=== PATIENT | male | born 1965 | race African-American/Black ===

== ENCOUNTER 2017-02-14 13:13 | Inpatient (IN) | payer OTHER ==
[2017-02-14 13:46] VITALS: BMI 26.6
[2017-02-14] MEDS ORDERED: guaiFENesin/D-METHORPHAN HB 10 ML UNIT-DOSE CUPS PO PRN (13:50)
[2017-02-14] MEDS ORDERED: MAGNESIUM CITRATE 300 ML BOTTLE PO PRN (13:50)
[2017-02-14] MEDS ORDERED: IBUPROFEN 400 MG TABLET (FP) PO PRN (13:50)
[2017-02-14] MEDS ORDERED: P-EPHED 60MG/TRIPROLIDI 2.5MG TABLET PO PRN (13:50)
[2017-02-14] MEDS ORDERED: LOPERAMIDE HCL 2 MG CAPSULE PO PRN (13:50)
[2017-02-14] MEDS ORDERED: MENTHOL/PHENOL 1 EACH UD MM PRN (13:50)
[2017-02-14] MEDS ORDERED: chlordiazePOXIDE HCL 25 MG CAPSULE PO PRN (13:50)
[2017-02-14] MEDS ORDERED: ACETAMINOPHEN 325 MG TABLET (FP) PO PRN (13:50)
[2017-02-14] MEDS ORDERED: MAGNESIUM HYDROX 2400MG/30ML ORAL SUSPENSION 30 ML CUP PO PRN (13:50)
[2017-02-14] MEDS ORDERED: diphenhydrAMINE HCL 50 MG CAPSULE PO PRN (13:50)
--- NOTE | 2017-02-14 14:05 | HP ---
CIWA Score - CIWA Score Nausea/Vomitin Muscle Tremors: 3 Anxiety: 3 Agitation: 3 Paroxysmal Sweats: 3 Orientation: 0-Oriented Tacttile Disturbances: 2-Mild Itch/Numbness/Burn Auditory Disturbances: 0-None Visual Disturbances: 0-None Headache: 0-None Present CIWA-Ar Total Score: 16 Admission ROS BHS - HPI Chief Complaint: i need help to stop drinking Allergies/Adverse Reactions: Allergies Allergy/AdvReac Type Severity Reaction Status Date / Time Penicillins Allergy Verified 02/14/17 13:49 benztropine mesylate AdvReac Verified 02/14/17 13:50 [From brotips] History of Present Illness: 51 y/o m pt with schizophrenia seeking detox. Exam Limitations: No Limitations - Ebola screening Have you traveled outside of the country in the last 21 days: No Have you had contact with anyone from an Ebola affected area: No Have you been sick,other than usual withdrawal symptoms: No Do you have a fever: No - Review of Systems Constitutional: Malaise, Changes in sleep EENT: reports: No Symptoms Reported Respiratory: reports: No Symptoms reported Cardiac: reports: No Symptoms Reported GI: reports: Nausea, Indigestion : reports: Frequency Musculoskeletal: reports: No Symptoms Reported Integumentary: reports: No Symptoms Reported Neuro: reports: Tremors, Other (dystonic reaction 2nd to haldol - pt treated today with benadryl 50mg after he recieved IM haldol today and developed dystonic reaction whie in [facility] .) Endocrine: reports: No Symptoms Reported Hematology: reports: No Symptoms Reported Psychiatric: reports: Orientated x3, Agitated, Anxious, Depressed Other Systems: Reviewed and Negative Patient History - Patient Medical History Hx Anemia: No Hx Asthma: No Hx Chronic Obstructive Pulmonary Disease (COPD): No Hx Cancer: No Hx Cardiac Disorders: No Hx Hypertension: No Hx Hypercholesterolemia: No Hx Pacemaker: No HX Cerebrovascular Accident: No Hx Seizures: No Hx Dementia: No Hx Diabetes: No Hx Gastrointestinal Disorders: No Hx Liver Disease: No Hx Genitourinary Disorders: No Hx Sexually Transmitted Disorders: Yes (Tx for gonnorhea.) Hx Renal Disease (ESRD): No Hx Thyroid Disease: No Hx Human Immunodeficiency Virus (HIV): No Hx Hepatitis C: No Hx Depression: Yes Hx Suicide Attempt: Yes (Tried to overdose in 1997) Hx Schizophrenia: Yes - Patient Surgical History Past Surgical History: Yes Other Surgical History: R mandible sx for fx - PPD History Previous Implant?: Yes Documented Results: Negative w/o proof Implanted On Prior R Admission?: No PPD to be Administered?: Yes - Reproductive History Patient is a Female of Child Bearing Age (11 -55 yrs old): No Patient : No - Smoking Cessation Smoking history: Former smoker Have you smoked in the past 12 months: No If you are a former smoker, when did you quit?: 1989 Hx Chewing Tobacco Use: No Initiated information on smoking cessation: No 'Breaking Loose' booklet given: 02/14/17 - Substance & Tx. History Hx Alcohol Use: Yes Hx Substance Use: No Substance Use Type: Alcohol Hx Substance Use Treatment: Yes - Substances Abused Alcohol Route: Oral Frequency: Daily Amount used: 3 pints vodka Age of first use: 17 Date of Last Use: 02/13/17 Family Disease History - Family Disease History Family Disease History: Diabetes: Grandparent Admission Physical Exam S - Vital Signs Vital Signs: Vital Signs - 24 hr 02/14/17 13:44 Temperature 96.8 F L Pulse Rate 118 H Respiratory 20 Rate Blood Pressure 109/62 51 y/o m pt aox3 , in nad ambulating cooperating with exam. - Physical General Appearance: Yes: Disheveled, Irritable, Anxious HEENTM: Yes: EOMI, Hearing grossly Normal, Normal ENT Inspection, Normal Voice, ARPIT Respiratory: Yes: Within Normal Limits, Chest Non-Tender, Lungs Clear, Normal Breath Sounds, No Respiratory Distress Neck: Yes: Supple, Trachea in good position Breast: Yes: Other (mild gynecomastia ans accesory nipple on rt and left) Cardiology: Yes: Regular Rhythm, Regular Rate, S1, S2 Abdominal: Yes: Non Tender, Flat, Increased Bowel Sounds Genitourinary: Yes: Frequency Back: Yes: Decreased Range of Motion Musculoskeletal: Yes: Back pain Neurological: Yes: manager mental health II-XII NML intact, Fully Oriented, Alert, Motor Strength 5/5, Normal Response Integumentary: Yes: Moist Lymphatic: Yes: Within Normal Limits - Diagnostic (1) Alcohol dependence with uncomplicated withdrawal Current Visit: Yes Status: Acute (2) Schizophrenia Current Visit: Yes Status: Acute Qualifiers: Schizophrenia type: unspecified Qualified Code(s): F20.9 - Schizophrenia, unspecified (3) Acute dystonic reaction due to drugs Current Visit: Yes Status: Acute Comment: pt given Haldol 100mg at [facility] and while in [facility] developed dystonic reaction involving tongue and neck . now pt improved after benadryl 50mg im . Cleared for Admission [facility] - Detox or Rehab [facility] Level of Care: Medically Managed Detox Regimen/Protocol: Librium S Breath Alcohol Content Breath Alcohol Content: 0
[2017-02-14] MEDS: chlordiazePOXIDE HCL 25 MG CAPSULE PO SCH ×2 (17:53→23:38)
[2017-02-14] MEDS ORDERED: EPINEPHrine 1:1,000 0.3 MG/0.3 ML SYR IM ONE (20:53)
--- NOTE | 2017-02-14 20:53 | PN ---
[facility] Progress Note Note: received nurse informed, patient has swelling tongue, unable to talk clearly observed patient sitting on chair in front of nurse station, alert, protrusion + swelling tongue, unable to swallow saliva epi pen x 1 given successfully, ambulance was call, information provided to er.
[2017-02-14 23:07] LABS: URINE APPEARANCE CLEAR; URINE BILIRUBIN NEGATIVE (NEGATIVE); URINE BLOOD NEGATIVE (NEGATIVE); URINE COLOR LTYELLOW; URINE GLUCOSE (UA) NEGATIVE (NEGATIVE); URINE KETONE NEGATIVE (NEGATIVE); URINE LEUK ESTERASE NEGATIVE (NEGATIVE); URINE NITRITE NEGATIVE (NEGATIVE); URINE PROTEIN NEGATIVE (NEGATIVE); URINE UROBILINOGEN NEGATIVE E.U./dl (0.2-1.0)
[2017-02-14] MEDS: THIAMINE HCL 100 MG TABLET (FP) PO SCH (23:26)
[2017-02-15] MEDS ORDERED: diphenhydrAMINE HCL 25 MG CAPSULE (FP) PO PRN (00:44)
[2017-02-15] MEDS: chlordiazePOXIDE HCL 25 MG CAPSULE PO SCH ×4 (05:33→23:23)
--- NOTE | 2017-02-15 08:53 | CONSULT ---
[facility] Psychiatric Consult - Data Date of interview: 02/15/17 Admission source: [facility] Identifying data: Yuridia is 51 years old male with Schizophrenia, psychiatric hospitalization history, history of chronic Tardive Diskinesia, intoxicated with : Alcohol Substance Abuse History: - Smoking Cessation. Smoking history: Former smoker. Have you smoked in the past 12 months: No. If you are a former smoker, when did you quit?: 1989. Hx Chewing Tobacco Use: No. Initiated information on smoking cessation: No. 'Breaking Loose' booklet given: 02/14/17. - Substance & Tx. History. Hx Alcohol Use: Yes. Hx Substance Use: No. Substance Use Type : Alcohol. Hx Substance Use Treatment: Yes. - Substances Abused. Alcohol. Route: Oral. Frequency: Daily. Amount used: 3 pints vodka. Age of first use : 17. Date of Last Use: 02/13/17 Medical History: PPD+ history, Dystonia, TD Psychiatric History: Patient reports history of Paranoid Schizoiphrenia with most recent psychiatric hospitalization on about 5 years ago, reports stable on monthly Haldol Decanoate injections with most recenmt one on 02/14/17. Patient reprots allergy to Benzthropin and Cogentin, reports chronic history of TD, reports taking Benadryl IM 100mg injections four times per day Physical/Sexual Abuse/Trauma History: Denies, unclear Additional Comment: Benadryl IM 100mg po bid Mental Status Exam - Mental Status Exam Alert and Oriented to: Person Cognitive Function: Fair Patient Appearance: Unkempt Mood: Anxious, Irritable Affect: Constricted Patient Behavior: Impulsive, Talkative Speech Pattern: Excessive Voice Loudness: Mildly Loud Thought Process: Goal Oriented Thought Disorder: Being Controlled Hallucinations: Denies Suicidal Ideation: Denies Homicidal Ideation: Denies Insight/Judgement: Fair Sleep: Difficulty falling asleep Appetite: Weight loss Muscle strength/Tone: Rigidity Gait/Station: Shuffling Additional Comments: Benadryl IM 100mg po bid Psychiatric Findings - Problem List ([place] 1, 2,3) (1) Acute dystonic reaction due to drugs Current Visit: Yes Status: Acute Comment: pt given Haldol 100mg at [facility] and while in [facility] developed dystonic reaction involving tongue and neck . now pt improved after benadryl 50mg im . (2) Schizophrenia Current Visit: Yes Status: Acute Qualifiers: Schizophrenia type: unspecified Qualified Code(s): F20.9 - Schizophrenia, unspecified (3) Alcohol dependence with uncomplicated withdrawal Current Visit: No Status: Acute (4) Tardive dyskinesia Current Visit: No Status: Acute - Initial Treatment Plan Initial Treatment Plan: Benadryl IM 100mg po bid
--- NOTE | 2017-02-15 09:50 | PN ---
S CIWA - CIWA Score Nausea/Vomitin Muscle Tremors: 3 Anxiety: 3 Agitation: 3 Paroxysmal Sweats: 1-Minimal Palms Moist Orientation: 0-Oriented Tacttile Disturbances: 1-Very Mild Itch/Numbness Auditory Disturbances: 1-Very Mild Visual Disturbances: 1-Very Mild Sensitivity Headache: 2-Mild CIWA-Ar Total Score: 18 [facility] Progress Note (SOAP) Subjective: ALERT,IRRITABLE,ANXIOUS,INTERRUPTED SLEEP,TREMOR,DYSTONIC REACTION SUBSIDED, CLEAR SPEECH,NORMAL MOVEMENT OF TONGUE,SEEN BY PSYCHIATRIST Objective: 02/15/17 09:48 02/15/17 09:49 Vital Signs Temperature 98.2 F 02/15/17 06:25 Pulse Rate 89 02/15/17 06:25 Respiratory Rate 18 02/15/17 06:25 Blood Pressure 115/72 02/15/17 06:25 O2 Sat by Pulse Oximetry (%) EKG NSR,NORMAL ECG Laboratory Last Values Urine Color Ltyellow 02/14/17 21:38 Urine Appearance Clear 02/14/17 21:38 Urine pH 5.0 (5.0-8.0) 02/14/17 21:38 Ur Specific [place] 1.016 (1.001-1.035) 02/14/17 21:38 Urine Protein Negative (NEGATIVE) 02/14/17 21:38 Urine Glucose (UA) Negative (NEGATIVE) 02/14/17 21:38 Urine Ketones Negative (NEGATIVE) 02/14/17 21:38 Urine Blood Negative (NEGATIVE) 02/14/17 21:38 Urine Nitrite Negative (NEGATIVE) 02/14/17 21:38 Urine Bilirubin Negative (NEGATIVE) 02/14/17 21:38 Urine Urobilinogen Negative E.U./dl (0.2-1.0) 02/14/17 21:38 Ur Leukocyte Esterase Negative (NEGATIVE) 02/14/17 21:38 LABS PENDING Assessment: 02/15/17 09:50 WITHDRAWAL SYMPTOM Plan: CONTINUE DETOX,CASE DISCUSSED WITH DR DUARTE AGREED FOR D/C PREDNISONE, BENADRYL 50 MGS PO Q6 HRS FOR DYSTONIC REACTION,CLOSE MONITORING
[2017-02-15] MEDS ORDERED: diphenhydrAMINE HCL 25 MG CAPSULE (FP) PO SCH (10:00)
[2017-02-15] MEDS ORDERED: predniSONE 20 MG TABLET (UD) PO SCH (10:00)
[2017-02-15 10:09] LABS: MCH 22.2 pg (25.7-33.7); MCHC 30.3 g/dl (32.0-35.9); MEAN CELL VOLUME 73.1 fl (80-96); MEAN PLT VOLUME 9.9 fl (7.5-11.1); PLATELET COUNT 250 K/MM3 (134-434); RDW 17.2 % (11.9-15.9); WHITE BLOOD COUNT 13.1 K/mm3 (4.0-10.0)
[2017-02-15 10:10] LABS: ALBUMIN 3.4 g/dl (3.4-5.0)
--- NOTE | 2017-02-15 10:12 | PN ---
S Progress Note Note: BENADRYL 50 MGS PO Q6HRS D/C PATIENT RECEIVING BENADRYL 100 MGS IM BID BY DR CHAVEZ
[2017-02-15 10:15] LABS: ALK PHOS 103 U/L (45-117); ANION GAP 14 (8-16); BILIRUBIN,TOTAL 0.3 mg/dL (0.2-1.0); CALCIUM 8.8 mg/dL (8.5-10.1); CO2 24 mmol/L (21-32); COCKROFT - GAULT 78.82; CREATININE 1.2 mg/dL (0.7-1.3); GLUCOSE,RANDOM 99 mg/dL (74-106); SGOT/AST 17 U/L (15-37); SGPT/ALT 30 U/L (12-78); TOT PROT 7.2 g/dl (6.4-8.2)
[2017-02-15] MEDS: PRENATAL VITAMINS W/ FOLIC ACID TABLET (FP) PO SCH (10:17)
--- NOTE | 2017-02-15 12:42 | PN ---
[facility] Progress Note Note: patient is having dystonic reaction form haldol,no respiratory distress,able to talk,benadryl 50 mgs im stat
--- NOTE | 2017-02-15 12:59 | PN ---
[facility] Progress Note Note: patient stated has been taking amantidine 100 mgs po tid for dystonic reaction for 2 years,medication ordered
[2017-02-15] MEDS: AMANTADINE HCL 100 MG TABLET PO SCH ×2 (14:12→22:33)
--- NOTE | 2017-02-15 18:43 | PN ---
[id number] 99%, S1S2 clear lungs, abdomen soft none tender, extremities and neck full range of motion, observed patient lying on bed sound of sleep, easy to aroused, breathing ease and equal, alert, no acute distress, no significant change ekg able to chew regular food, swallow fluid, none cardiogenic continue detox
[2017-02-15] MEDS: MAG HYDROX/AL HYDROX/SIMETH 30 ML UNIT-DOSE CUP PO PRN (19:48)
[2017-02-15] MEDS: THIAMINE HCL 100 MG TABLET (FP) PO SCH (22:33)
[2017-02-16] MEDS: MAG HYDROX/AL HYDROX/SIMETH 30 ML UNIT-DOSE CUP PO PRN (01:36)
[2017-02-16] MEDS: AMANTADINE HCL 100 MG TABLET PO SCH ×3 (05:38→22:08)
[2017-02-16] MEDS: chlordiazePOXIDE HCL 25 MG CAPSULE PO SCH ×2 (05:38→10:26)
--- NOTE | 2017-02-16 08:59 | PN ---
S CIWA - CIWA Score Nausea/Vomitin Muscle Tremors: 3 Anxiety: 3 Agitation: 2 Paroxysmal Sweats: 1-Minimal Palms Moist Orientation: 0-Oriented Tacttile Disturbances: 1-Very Mild Itch/Numbness Auditory Disturbances: 1-Very Mild Visual Disturbances: 1-Very Mild Sensitivity Headache: 2-Mild CIWA-Ar Total Score: 17 [facility] Progress Note (SOAP) Subjective: alert,irritable,tremor,interrupted sleep,pain in the body and back,no chest pain ,no sob,no dystonic reaction at this present time Objective: 02/16/17 08:57 Vital Signs Temperature 96.6 F L 02/16/17 06:33 Pulse Rate 70 02/16/17 06:33 Respiratory Rate 18 02/16/17 06:33 Blood Pressure 117/65 02/16/17 06:33 O2 Sat by Pulse Oximetry (%) 02/16/17 08:57 Laboratory Last Values WBC 13.1 K/mm3 (4.0-10.0) H 02/15/17 07:30 RBC 5.77 M/mm3 (4.00-5.60) H 02/15/17 07:30 Hgb 12.8 GM/dL (11.7-16.9) 02/15/17 07:30 Hct 42.1 % (35.4-49) 02/15/17 07:30 MCV 73.1 fl (80-96) L 02/15/17 07:30 MCHC 30.3 g/dl (32.0-35.9) L 02/15/17 07:30 RDW 17.2 % (11.9-15.9) H 02/15/17 07:30 Plt Count 250 K/MM3 (134-434) 02/15/17 07:30 MPV 9.9 fl (7.5-11.1) 02/15/17 07:30 Sodium 139 mmol/L (136-145) 02/15/17 07:30 Potassium 4.2 mmol/L (3.5-5.1) 02/15/17 07:30 Chloride 101 mmol/L (98-107) 02/15/17 07:30 Carbon Dioxide 24 mmol/L (21-32) 02/15/17 07:30 Anion Gap 14 (8-16) 02/15/17 07:30 BUN 9 mg/dL (7-18) 02/15/17 07:30 Creatinine 1.2 mg/dL (0.7-1.3) 02/15/17 07:30 Creat Clearance w eGFR > 60 (>60) 02/15/17 07:30 Random Glucose 99 mg/dL (74-106) 02/15/17 07:30 Calcium 8.8 mg/dL (8.5-10.1) 02/15/17 07:30 Total Bilirubin 0.3 mg/dL (0.2-1.0) 02/15/17 07:30 AST 17 U/L (15-37) 02/15/17 07:30 ALT 30 U/L (12-78) 02/15/17 07:30 Alkaline Phosphatase 103 U/L (45-117) 02/15/17 07:30 Total Protein 7.2 g/dl (6.4-8.2) 02/15/17 07:30 Albumin 3.4 g/dl (3.4-5.0) 02/15/17 07:30 Urine Color Ltyellow 02/14/17 21:38 Urine Appearance Clear 02/14/17 21:38 Urine pH 5.0 (5.0-8.0) 02/14/17 21:38 Ur Specific [place] 1.016 (1.001-1.035) 02/14/17 21:38 Urine Protein Negative (NEGATIVE) 02/14/17 21:38 Urine Glucose (UA) Negative (NEGATIVE) 02/14/17 21:38 Urine Ketones Negative (NEGATIVE) 02/14/17 21:38 Urine Blood Negative (NEGATIVE) 02/14/17 21:38 Urine Nitrite Negative (NEGATIVE) 02/14/17 21:38 Urine Bilirubin Negative (NEGATIVE) 02/14/17 21:38 Urine Urobilinogen Negative E.U./dl (0.2-1.0) 02/14/17 21:38 Ur Leukocyte Esterase Negative (NEGATIVE) 02/14/17 21:38 RPR Titer Nonreactive (NONREACTIVE) 02/15/17 07:30 Assessment: 02/16/17 08:58 withdrawal symptom Plan: continue detox,encourage oral fluid,cbc wbc 13.100,will repeat cbc in am
[2017-02-16] MEDS: PRENATAL VITAMINS W/ FOLIC ACID TABLET (FP) PO SCH (10:25)
--- NOTE | 2017-02-16 11:49 | EKG ---
Test Reason : Blood Pressure : / mmHG Vent. Rate : 070 BPM Atrial Rate : 070 BPM P-R Int : 118 ms QRS Dur : 092 ms QT Int : 382 ms P-R-T Axes : 075 059 064 degrees QTc Int : 412 ms NORMAL SINUS RHYTHM NORMAL ECG WHEN COMPARED WITH ECG OF 24-JAN-2001 12:12, QRS DURATION HAS DECREASED ST NO LONGER DEPRESSED IN LATERAL LEADS T WAVE INVERSION NO LONGER EVIDENT IN ANTEROLATERAL LEADS Confirmed by CHANDLER MCCLELLAN MD ([id number]) on 02/16/2017 11:49:08 AM Referred By: Confirmed By:CHANDLER MCCLELLAN MD
--- NOTE | 2017-02-16 12:43 | PN ---
[facility] Progress Note Note: patient has dystonic reaction,benadryl 50 mgs im given,patient responded,able to talk,swelling of tongue subsided, closed monitoring,continue benadryl and amantidine
--- NOTE | 2017-02-16 15:43 | EKG ---
Test Reason : Blood Pressure : / mmHG Vent. Rate : 096 BPM Atrial Rate : 096 BPM P-R Int : 124 ms QRS Dur : 088 ms QT Int : 358 ms P-R-T Axes : 055 061 067 degrees QTc Int : 452 ms NORMAL SINUS RHYTHM NONSPECIFIC ST AND T WAVE ABNORMALITY ABNORMAL ECG WHEN COMPARED WITH ECG OF 14-FEB-2017 17:04, NO SIGNIFICANT CHANGE WAS FOUND Confirmed by CHANDLER MCCLELLAN MD ([id number]) on 02/16/2017 3:43:28 PM Referred By: Confirmed By:CHANDLER MCCLELLAN MD
[2017-02-16] MEDS: chlordiazePOXIDE 5 MG CAPSULE PO SCH ×2 (17:42→22:07)
[2017-02-16] MEDS: THIAMINE HCL 100 MG TABLET (FP) PO SCH (22:08)
[2017-02-17] MEDS ORDERED: hydrOXYzine PAMOATE 50 MG CAPSULE (FP) PO ONE (01:59)
[2017-02-17] MEDS: chlordiazePOXIDE 5 MG CAPSULE PO SCH ×2 (04:49→10:15)
[2017-02-17] MEDS: AMANTADINE HCL 100 MG TABLET PO SCH ×3 (06:53→23:03)
--- NOTE | 2017-02-17 09:17 | PN ---
S Progress Note (SOAP) Subjective: ALERT,IRRITABLE,ANXIOUS,INTERRUPTED SLEEP, Objective: 02/17/17 09:16 Vital Signs Temperature 97.9 F 02/17/17 05:59 Pulse Rate 80 02/17/17 05:59 Respiratory Rate 18 02/17/17 05:59 Blood Pressure 116/75 02/17/17 05:59 O2 Sat by Pulse Oximetry (%) Assessment: 02/17/17 09:16 WITHDRAWAL SYMPTOM Plan: CONTINUE DETOX,NO DYSTONIA AT THIS TIME,DISCHARGE IN AM
[2017-02-17 10:08] LABS: MCH 22.5 pg (25.7-33.7); MCHC 30.8 g/dl (32.0-35.9); MEAN CELL VOLUME 73.1 fl (80-96); MEAN PLT VOLUME 9.9 fl (7.5-11.1); PLATELET COUNT 215 K/MM3 (134-434); RDW 16.7 % (11.9-15.9); WHITE BLOOD COUNT 9.4 K/mm3 (4.0-10.0)
[2017-02-17] MEDS: PRENATAL VITAMINS W/ FOLIC ACID TABLET (FP) PO SCH (10:15)
[2017-02-17] MEDS: chlordiazePOXIDE HCL 10 MG CAPSULE PO SCH ×2 (18:00→23:01)
[2017-02-17] MEDS: THIAMINE HCL 100 MG TABLET (FP) PO SCH (23:03)
[2017-02-18] MEDS: chlordiazePOXIDE HCL 10 MG CAPSULE PO SCH (05:53)
[2017-02-18] MEDS: AMANTADINE HCL 100 MG TABLET PO SCH (05:53)
--- NOTE | 2017-02-18 08:49 | PN ---
S Progress Note (SOAP) Subjective: ALERT,NO COMPLAINT Objective: 02/18/17 08:45 Vital Signs Temperature 97.2 F L 02/18/17 06:42 Pulse Rate 86 02/18/17 06:42 Respiratory Rate 18 02/18/17 06:42 Blood Pressure 104/65 02/18/17 06:42 O2 Sat by Pulse Oximetry (%) Assessment: 02/18/17 08:46 DETOX COMPLETED,NO WITHDRAWAL SYMPTOM Plan: DISCHARGE TODAY,FOLLOW UP WITH AFTER CARE PROGRAM ARRANGEMENT AND PMD AND OWN PSYCHIATRIST FOR FOLLOW UP
--- NOTE | 2017-02-18 08:54 | DS ---
[facility] Detox Discharge Summary Admission Date: 02/14/17 Discharge Date: 02/18/17 - History Present History: Alcohol Dependence Additional Comments: FOLLOW UP WITH AFTER CARE PROGRAM ARRANGEMENT AND PMD AND OWN PSYCHIATRIST FOR FOLLOW UP Pertinent Past History: SCHIZOPHRENIA DYSTONIC REACTION DUE TO DRUG - Physical Exam Results Vital Signs: Vital Signs Temperature 97.2 F L 02/18/17 06:42 Pulse Rate 86 02/18/17 06:42 Respiratory Rate 18 02/18/17 06:42 Blood Pressure 104/65 02/18/17 06:42 O2 Sat by Pulse Oximetry (%) Pertinent Admission Physical Exam Findings: WITHDRAWAL SYMPTOM - Treatment Hospital Course: Detox Protocol Followed, Detoxed Safely, Responded well, Discharged Condition Good Patient has Accepted a Rehab Referral to: DECL[facility]ED - Medication Discharge Medications: Ambulatory Orders Divalproex *ER* [Depakote *ER* -] 750 mg PO HS 02/14/17 Haloperidol Decanoate [Haldol Decanoate 100] 100 mg IM MONTHLY 02/14/17 Trifluoperazine HCl [Stelazine] 5 mg PO BID 02/14/17 Prednisone [Deltasone -] 40 mg PO DAILY #10 tablet 02/15/17 Amantadine HCl [Symmetrel -] 100 mg PO TID #90 tab 02/18/17 - Diagnosis (1) Positive PPD Current Visit: Yes Status: Acute (2) Schizophrenia Current Visit: Yes Status: Acute Qualifiers: Schizophrenia type: unspecified Qualified Code(s): F20.9 - Schizophrenia, unspecified (3) Alcohol dependence with uncomplicated withdrawal Current Visit: No Status: Acute (4) Tardive dyskinesia Current Visit: No Status: Acute (5) Acute dystonic reaction due to drugs Current Visit: Yes Status: Acute - AMA Did Patient Leave Against Medical Advice: No
[2017-02-18 10:27] VITALS: BP 110/73; PULSE 113; TEMP 98.6
[2017-02-18] MEDS: PRENATAL VITAMINS W/ FOLIC ACID TABLET (FP) PO SCH (10:40)
--- NOTE | 2017-02-18 11:31 | PN ---
[facility] Progress Note Note: CHUCK STATED HE HAS BEEN TAKING BENADRYL 25 MGS PO BID AND AMANTADINE 100 MGS PO TID FOR DYTONIC REACTION AND HAS ALL MEDICATIONS AT HOME
== END 2017-02-18 11:36 | disposition home or self-care (01) | DRG 897 ==
LOC: YASAS 13:13 → Y6N 15:38
PROVIDERS: ADMIT Internal Medicine Addiction Medicine; ATTEND Internal Medicine Addiction Medicine
PROC: HZ2ZZZZ Detoxification Services for Substance Abuse Treatment (ICD-10-PCS; principal; 2017-02-18)
DX: F10.230 Alcohol dependence with withdrawal, uncomplicated (principal); G24.09 Other drug induced dystonia; F20.9 Schizophrenia, unspecified; G24.01 Drug induced subacute dyskinesia; T43.4X5A Adverse effect of butyrophenone and thiothixene neuroleptics, initial encounter; Y92.238 Other place in hospital as the place of occurrence of the external cause
CPT/HCPCS: 36415; 71020-TC; 80053; 81003; 85027; 86593; 93005; 93010

== ENCOUNTER 2017-02-14 21:04 | Emergency (ER) | payer OTHER ==
[2017-02-14] MEDS ORDERED: methylPREDNISolone NA SUCC 125 MG/2 ML VIAL IVPB ONE (21:27)
[2017-02-14] MEDS ORDERED: PROMETHAZINE HCL 25 MG/1 ML VIAL IVPUSH ONE (21:28)
[2017-02-14 21:35] VITALS: BP 136/96; PULSE 94; TEMP 98.6; BMI 27.4
[2017-02-14] MEDS ORDERED: methylPREDNISolone NA SUCC 125 MG/2 ML VIAL ONE (21:45)
[2017-02-14] MEDS ORDERED: PROMETHAZINE HCL 25 MG/1 ML VIAL ONE (21:45)
--- NOTE | 2017-02-14 22:40 | PDOC ---
History of Present Illness - General History Source: Patient, EMS, Old Records Exam Limitations: No Limitations - History of Present Illness Initial Comments: 02/14/17 22:41 The patient is a 51 year old male, with a significant past medical history of alcohol abuse, who presents to the emergency department via EMS from [facility] with a swollen tongue and throat tightness after he was given Haldol earlier today at [facility]. The patient was then transferred to [facility] from [facility] for detox. While at [facility], the patient began experiencing these symptoms. The patient states that today was the first time he had ever been given Haldol. EMS was initiated and the patient was given 0.3 Epinephrine and 50 Benadryl prior to presentation to the ED. The patient denies any difficulty breathing. Allergies: Haloperidol, Haloperidol Lactate, Penicillins, Benztropine Mesylate. Past Surgical History: None reported. Social History: Current everyday smoker. Currently at [facility] for detox from alcohol. Denies drug use. <Qi Bey - Last Filed: 02/14/17 22:44> <Cesar Coulter - Last Filed: 02/15/17 00:08> - General Chief Complaint: Allergic Reaction Stated Complaint: ALLERGIC REACTION Time Seen by Provider: 02/14/17 21:16 Past History <Qi Bey - Last Filed: 02/14/17 22:44> - Past Medical History Anemia: No Asthma: No Cancer: No Cardiac Disorders: No CVA: No COPD: No Dementia: No Diabetes: No GI Disorders: No Disorders: No HTN: No Hypercholesterolemia: No Kidney Stones: No Liver Disease: No Suicide Attempt (Hx): Yes (Tried to overdose in 1997) Seizures: No Thyroid Disease: No - Reproductive History Testicular Surgery: No - Psycho/Social/Smoking Cessation Hx Anxiety: Yes Suicidal Ideation: No Smoking History: Current every day smoker Have you smoked in the past 12 months: No If you are a former smoker, when did you quit?: 1989 Information on smoking cessation initiated: Yes 'Breaking Loose' booklet given: 02/14/17 Hx Alcohol Use: Yes Drug/Substance Use Hx: Yes Substance Use Type: Alcohol Hx Substance Use Treatment: Yes <Cesar Coulter - Last Filed: 02/15/17 00:08> - Past Medical History Allergies/Adverse Reactions: Allergies Allergy/AdvReac Type Severity Reaction Status Date / Time haloperidol [From Haldol] Allergy Verified 02/14/17 21:07 haloperidol lactate Allergy Verified 02/14/17 21:07 [From Haldol] Penicillins Allergy Verified 02/14/17 21:07 benztropine mesylate AdvReac Verified 02/14/17 21:07 [From Cogentin] Home Medications: Ambulatory Orders Divalproex *ER* [Depakote *ER* -] 750 mg PO HS 02/14/17 Haloperidol Decanoate [Haldol Decanoate 100] 100 mg IM MONTHLY 02/14/17 Trifluoperazine HCl [Stelazine] 5 mg PO BID 02/14/17 Prednisone [Deltasone -] 40 mg PO DAILY #10 tablet 02/15/17 Review of Systems - Review of Systems Able to Perform ROS?: Yes Comments:: 02/14/17 22:41 CONSTITUTIONAL: No fever, no chills, no fatigue EYES: No visual changes ENT:+Tongue swelling, throat tightness. No ear pain, no sore throat CARDIOVASCULAR: No chest pain, no palpitations RESPIRATORY: No cough, no SOB GI: No abdominal pain, no nausea, no vomiting, no constipation, no diarrhea GENITOURINARY: No dysuria, no frequency, no hematuria MUSKULOSKELETAL: No back pain, no joint pain, no myalgias SKIN: No rash NEURO: No headache <Qi Bey - Last Filed: 02/14/17 22:44> *Physical Exam - Vital Signs Last Vital Signs Temp Pulse Resp BP Pulse Ox 98.6 F 94 H 14 136/96 100 02/14/17 21:29 02/14/17 21:29 02/14/17 21:29 02/14/17 21:29 02/14/17 21:29 <Qi Bey - Last Filed: 02/14/17 22:44> - Vital Signs Last Vital Signs Temp Pulse Resp BP Pulse Ox 98.6 F 94 H 14 136/96 100 02/14/17 21:29 02/14/17 21:29 02/14/17 21:29 02/14/17 21:29 02/14/17 21:29 - Physical Exam Comments: 02/14/17 10:48 EXAMINATION CONSTITUTIONAL: Well-appearing; well-nourished; in no apparent distress HEAD: Normocephalic; atraumatic EYES: PERRL; EOM intact ENMT: External appears normal; + lingual angioedema with involuntary lip smacking and tongue movements consistent with tardive diskenesia NECK: Supple; non-tender; no stridor; + dysphonia CARD: Normal S1, S2; no murmurs, rubs, or gallops RESP: Normal chest excursion with respiration; breath sounds clear and equal bilaterally; no wheezes, rhonchi, or rales ABD: Soft, non-distended; non-tender; no palpable organomegaly, no palpable hernias EXT: Normal ROM in all four extremities; non-tender to palpation; distal pulses intact SKIN: Warm, dry, no rash NEURO: No focal neurological deficiencies. <Cesar Coulter - Last Filed: 02/15/17 00:08> ED Treatment Course - Medications Given in the ED: ED Medications Discontinued Medications Generic Name Dose Route Start Last Admin Trade Name Freq PRN Reason Stop Dose Admin Methylprednisolone Sodium Succinate 125 mg 02/14/17 21:27 02/14/17 21:52 Solu-Medrol - IVPB 02/14/17 21:28 125 mg ONCE ONE Administration Promethazine HCl 12.5 mg 02/14/17 21:28 02/14/17 21:51 Phenergan Injection - IVPUSH 02/14/17 21:29 12.5 mg ONCE ONE Administration <Qi Bey - Last Filed: 02/14/17 22:44> - Medications Given in the ED: ED Medications Discontinued Medications Generic Name Dose Route Start Last Admin Trade Name Freq PRN Reason Stop Dose Admin Methylprednisolone Sodium Succinate 125 mg 02/14/17 21:27 02/14/17 21:52 Solu-Medrol - IVPB 02/14/17 21:28 125 mg ONCE ONE Administration Promethazine HCl 12.5 mg 02/14/17 21:28 02/14/17 21:51 Phenergan Injection - IVPUSH 02/14/17 21:29 12.5 mg ONCE ONE Administration <Cesar Coulter - Last Filed: 02/15/17 00:08> Medical Decision Making - Medical Decision Making 04/12/17 00:05 Patient is a well-appearing 51-year-old male who presents with signs and symptoms of angioedema and tardive dyskinesia after receiving 100 mg of Haldol the [facility] shortly prior to transfer to [facility] inpatient detox with received 0.3 mg of epinephrine IM and 15 g of Benadryl IM. In the ER , initial evaluation, mild angioedema with dysphonia was noted. Patient received additional Phenergan and Solu-Medrol. After period of observation, the involuntary facial movements had stopped and lingual angioedema had resolved completely. Patient also reports that his voice is back to normal. At this time , patient will be discharged with prednisone-40 mg by mouth daily for the next 5 days and Benadryl-50 no grams by mouth 4 times a day as needed. <Cesar Coulter - Last Filed: 02/15/17 00:08> *DC/Admit/Observation/Transfer - Attestations Scribe Attestion: 02/14/17 22:40 Documentation prepared by Qi Bey, acting as biomedical equipment specialist for Cesar Coulter MD. <Qi Bey - Last Filed: 02/14/17 22:44> - Attestations Physician Attestion: 02/14/17 22:40 <Cesar Coulter - Last Filed: 02/15/17 00:08> Diagnosis at time of Disposition: Alcohol dependence with uncomplicated withdrawal, Tardive dyskinesia Allergic reaction Qualifiers: Encounter type: initial encounter Qualified Code(s): T78.40XA - Allergy, unspecified, initial encounter - Discharge Dispostion Disposition: I.P. ALCOHOL/SUBS ABUSE REHAB Condition at time of disposition: Stable - Referrals Referrals: pmd, one week [Other] - Patient Instructions Printed Discharge Instructions: DI for Adverse Drug Reaction -- Allergic, DI for Tardive Dyskinesia Additional Instructions: Take prednisone-40 mg for the next 5 days; take Benadryl-50 mg orally 4 times a day as needed. Follow-up with PMD. Return immediately for worsening symptoms.
== END 2017-02-15 00:17 | disposition other institution (70) ==
LOC: JER 21:04
PROC: 3E0333Z Introduction of Anti-inflammatory into Peripheral Vein, Percutaneous Approach (ICD-10-PCS; principal; 2017-02-14)
PROC: 3E033GC Introduction of Other Therapeutic Substance into Peripheral Vein, Percutaneous Approach (ICD-10-PCS; 2017-02-14)
PROC: 3E033GC Introduction of Other Therapeutic Substance into Peripheral Vein, Percutaneous Approach (ICD-10-PCS; 2017-02-14)
DX: T78.3XXA Angioneurotic edema, initial encounter (principal); T43.4X5A Adverse effect of butyrophenone and thiothixene neuroleptics, initial encounter; Y92.238 Other place in hospital as the place of occurrence of the external cause; G24.01 Drug induced subacute dyskinesia; F10.230 Alcohol dependence with withdrawal, uncomplicated
CPT/HCPCS: 96374; 96375; 99281-25